=== PATIENT | female | born 1995 | race African-American/Black ===

== ENCOUNTER 2020-11-21 12:19 | Emergency (ER) | payer OTHER, SELFPAY ==
[2020-11-21 12:30] VITALS: BP 149/74; PULSE 92; RESP 20; TEMP 36.9; O2SAT 100
--- NOTE | 2020-11-21 13:07 | ED.GENADULT ---
HPI - General Adult General Chief complaint: Upper Respiratory Infection Stated complaint: Sore Throat, headache, chills, bodyaches, nausea Time Seen by Provider: 11/21/20 13:07 Source: patient and RN notes reviewed Mode of arrival: ambulatory Limitations: no limitations History of Present Illness HPI narrative: 24-year-old -Ind[place] female presents with complaints of sore throat, body aches, intermittent chills, lightheadedness, and headache (not the worst of her life) for the past 2 days. Datyana reports increase sore throat and body aches throughout the night and today. DayQuil and NyQuil with little relief. No high fevers, drooling, neck or throat swelling. Pain is bilateral. Hurts to swallow. Exacerbation factors consist of eating and drinking. Rhinorrhea and nasal congestion. No voice change. Nausea without vomiting and abdominal pain. Tolerating liquids well. Denies dyspnea, difficulty swallowing, jaw pain, dental pain, facial pain, foreign body sensation, and rash. LMP 11/10/2020. Remains active. The patient reports she has not been diagnosed with COVID-19. The patient reports she received the Sarbjit and Sarbjit COVID-19 vaccine. The patient reports she is not waiting for the results of a COVID-19 lab test. The patient reports she does not have weakness, fatigue, or myalgia. The patient reports she does not have a new or worsening cough or shortness of breath. The patient reports she does not have any loss of taste or smell and diarrhea. Denies recent traveling. Denies concerns for COVID-19 or exposures. At this time, the patient is not suspected of having COVID-19. Some parts of this dictation were generated by voice recognition software and may contain typographical and/or grammatical inaccuracies. Related Data Allergies Allergy/AdvReac Type Severity Reaction Status Date / Time No Known Allergies Allergy Verified 02/24/19 18:09 Review of Systems Review of Systems: CONSTITUTIONAL: Denies fever, sweats. Complaints of chills. EYES: Denies visual changes, redness, discharge. ENT: Denies otalgia. Complains of sore throat, congestion, rhinorrhea. CARDIOVASCULAR: Denies chest pain, palpitations, edema. RESPIRATORY: Denies dyspnea, wheezing, cough. GASTROINTESTINAL: Denies abdominal pain, nausea, vomiting, diarrhea. GENITOURINARY: Denies dysuria, hematuria, abnormal discharge. SKIN: Denies rash or itching. MUSCULOSKELETAL: Denies acute back pain, joint pain, or myalgia. NEUROLOGIC: Denies numbness or focal weakness. Complaints of intermittent MILLER and lightheadedness. PSYCHIATRIC: Denies anxiety or depression. All systems reviewed & are unremarkable except as noted in HPI and below. PMFSH Past Medical History Medical History Asthma GERD (gastroesophageal reflux disease) Surgical History Surgical History S/P tonsillectomy and adenoidectomy Family History Family History (Updated 11/21/20 @ 13:21 by THAIS Cooley) Father Asthma Mother Hypertension Social History Social History (Updated 11/21/20 @ 13:21 by THAIS Cooley) Smoking packs per day: 0.5 Smoking cigarettes per day: 10.0 Years smoked: 7 Smoking pack-years: 3.50 Smoking status: Current every day smoker Tobacco type: cigarettes Second hand tobacco smoke exposure: Yes Alcohol intake: current Substance use: current Substance use type: marijuana Living arrangements: with family Occupation/Education: occupation Gender identity (if verbalized by the patient): Female Comments At time of signature, agree with the nurse past medical, surgical, social, and family history. There is relevant patient's history pertinent to the presenting complaint, no relevant family history pertinent to the presenting complaint. Exam Narrative: GENERAL: This is a well-nourished, well-developed patient, in n
[2020-11-21 13:31] VITALS: BP 142/63; PULSE 74
[2020-11-21 13:32] VITALS: BP 139/66; BP 144/63; PULSE 99
== END 2020-11-21 13:33 | disposition home or self-care (01) ==
PROVIDERS: Emergency Provider Nurse Practitioner Family; PCP Nurse Practitioner Family
DX: J02.0 Streptococcal pharyngitis (principal); F17.210 Nicotine dependence, cigarettes, uncomplicated; J45.909 Unspecified asthma, uncomplicated; K21.9 Gastro-esophageal reflux disease without esophagitis
CPT/HCPCS: 87880; 99213; G0463

== ENCOUNTER 2021-04-09 13:48 | Emergency (ER) | payer OTHER, SELFPAY ==
[2021-04-09 14:34] VITALS: BP 136/72; PULSE 84; RESP 16; TEMP 36.9; O2SAT 100
--- NOTE | 2021-04-09 16:11 | ED.URI ---
HPI - URI/Sore Throat General Chief Complaint: Upper Respiratory Infection Stated Complaint: cough aches fever Time Seen by Provider: 04/09/21 16:12 Source: patient, RN notes reviewed and old records reviewed Mode of arrival: ambulatory Limitations: no limitations and clinical condition History of Present Illness HPI Narrative: 25 year old female presents to express care with complaints of cough with body aches, fevers intermittently with some yellow tinged nasal drainage since . Patient reports that she has had COVID vaccination but has not had flu shot this year, does have history of asthma. Patient denies any acute dyspnea but wheezing scattered through out lung cunha. no tachypnea noted with SAO2 100% on room air. Patient reports that she has taken OTC cold medication. MD elicited complaint: fever, cough, rhinorrhea and nasal congestion Pertinent past history: asthma Treatments prior to arrival: cold medicine Related Data Allergies Allergy/AdvReac Type Severity Reaction Status Date / Time No Known Allergies Allergy Verified 04/09/21 15:12 Review of Systems Review of Systems: CONSTITUTIONAL: Intermittent fever,no chills, or sweats. EYES: Denies visual changes, redness, or discharge. ENT: Positive for rhinorrhea, congestion, sore throat, or otalgia. CARDIOVASCULAR: Denies chest pain, palpitations, or edema. RESPIRATORY: Positive cough denies acute dyspnea. GASTROINTESTINAL: Denies abdominal pain, nausea, vomiting, or diarrhea. GENITOURINARY: Denies dysuria or hematuria. SKIN: Denies rash or itching. MUSCULOSKELETAL: Denies back pain, joint pain, or myalgia. NEUROLOGIC: Denies headache, numbness, or weakness. PSYCHIATRIC: Denies anxiety or depression. All systems reviewed & are unremarkable except as noted in HPI and below PMFSH Past Medical History Medical History (Updated 04/10/21 @ 21:46 by Leena Lee NP) Asthma GERD (gastroesophageal reflux disease) Obesity PCOS (polycystic ovarian syndrome) Surgical History Surgical History S/P tonsillectomy and adenoidectomy Family History Family History Father Asthma Mother Hypertension Social History Social History (Updated 04/10/21 @ 21:41 by Leena Lee NP) Smoking packs per day: 0.5 Smoking cigarettes per day: 10.0 Years smoked: 7 Smoking pack-years: 3.50 Smoking status: Former smoker Tobacco type: cigarettes Second hand tobacco smoke exposure: Yes Additional smoking assessment comments: reported quit 03/2018 Alcohol intake: current Substance use: current Substance use type: marijuana Living arrangements: with family Gender identity (if verbalized by the patient): Female Comments At time of signature, agree with nursing past medical, surgical, social and family history. There is no relevant family history pertinent to the presenting complaint Exam Narrative: GENERAL: Well-appearing, well-nourished,obese and in no acute distress. HEAD: Normocephalic, atraumatic. EYES: PERRLA and EOMI. ENT: Nares red with turbinates swollen yellow tinged rhinorrhea no epistaxis. Mucous membranes moist. TM's normal with good light reflex, throat red with no lesions or exudates, tonsils absent NECK: Supple.no lymphadenopathy CHEST: Scattered wheezing inspiratory and expiratory on auscultation. No respiratory distress.No tachypnea SAO2 100% on room air. HEART: Regular rate and rhythm. No murmur heard. Normal peripheral pulses. ABDOMEN: Soft, nontender, nondistended, normal active bowel sounds. EXTREMITIES: Normal range of motion. No edema. SKIN: Warm, dry, no rash. NEURO: No focal deficits. Alert and oriented x3. Course Course Level of Care: Express Care Visit Vital Signs Vital signs: Vital Signs Temperature 36.9 C 04/09/21 14:34 Pulse Rate 84 04/09/21 14:34 Respiratory Rate 16 04/09/21 14:34 Blood Press
== END 2021-04-09 16:47 | disposition home or self-care (01) ==
PROVIDERS: Emergency Provider Registered Nurse; PCP Nurse Practitioner Family
DX: J45.901 Unspecified asthma with (acute) exacerbation (principal); Z20.822 Contact with and (suspected) exposure to COVID-19; J06.9 Acute upper respiratory infection, unspecified; Z87.891 Personal history of nicotine dependence; F12.90 Cannabis use, unspecified, uncomplicated
CPT/HCPCS: 87081; 87147; 87426; 87804; 87880; 99213; C9803; G0463

== ENCOUNTER 2021-07-18 14:57 | Emergency (ER) | payer OTHER, SELFPAY ==
--- NOTE | 2021-07-18 15:01 | ED.URI ---
HPI - URI/Sore Throat General Chief Complaint: Upper Respiratory Infection Stated Complaint: fever congestion cough Time Seen by Provider: 07/18/21 15:01 Source: patient and RN notes reviewed History of Present Illness HPI Narrative: Patient is a 25-year-old female who presents the urgent care with complaints of cough, congestion, body aches, fever. Patient states that she thought her cough that started last was related to her allergies and asthma however symptoms have progressed. Patient has been taking DayQuil, NyQuil, Delsym and Mucinex. Also reports of some mild bilateral ear pain. Patient does have a history of asthma and has been using her inhalers and nebulizers. No other acute complaints. No acute distress noted. Patient aware of the plan of care. Some parts of this dictation were generated by voice recognition software and may contain typographical and/or grammatical inaccuracies. Related Data Allergies Allergy/AdvReac Type Severity Reaction Status Date / Time No Known Allergies Allergy Verified 07/18/21 15:11 Review of Systems Review of Systems: CONSTITUTIONAL: Reports of fever, chills and sweats EYES: Denies visual changes, redness, or discharge. ENT: Reports of congestion, mild sore throat, postnasal drainage and bilateral otalgia CARDIOVASCULAR: Denies chest pain, palpitations, or edema. RESPIRATORY: Reports of cough and intermittent dyspnea with wheezing GASTROINTESTINAL: Denies abdominal pain, nausea, vomiting, or diarrhea. GENITOURINARY: Denies dysuria or hematuria. SKIN: Denies rash or itching. MUSCULOSKELETAL: Denies back pain, joint pain. Reports of body aches NEUROLOGIC: Denies headache, numbness, or weakness. All other systems reviewed are negative, except as documented in HPI. [facility] Past Medical History Medical History (Updated 07/18/21 @ 15:29 by THAIS Guillory) Asthma GERD (gastroesophageal reflux disease) Obesity PCOS (polycystic ovarian syndrome) Surgical History Surgical History S/P tonsillectomy and adenoidectomy Family History Family History Father Asthma Mother Hypertension Social History Social History (Updated 04/10/21 @ 21:41 by Leena Lee NP) Smoking packs per day: 0.5 Smoking cigarettes per day: 10.0 Years smoked: 7 Smoking pack-years: 3.50 Smoking status: Former smoker Tobacco type: cigarettes Second hand tobacco smoke exposure: Yes Additional smoking assessment comments: reported quit 03/2018 Alcohol intake: current Substance use: current Substance use type: marijuana Gender identity (if verbalized by the patient): Female Comments At the time of my signature, I reviewed and agree with the nursing past medical, surgical, social, and family history. There is no relevant family history pertinent to the patient complaint. Exam Narrative: GENERAL: This is a well-nourished, well-developed patient, in no apparent distress. HEAD: normocephalic, atraumatic. EYES: PERRL. Sclera clear/white. Vision is grossly intact. EARS: External ears normal, auditory canals clear and without drainage, TMs normal without perforation. Hearing grossly intact. NOSE: External nose normal with no obvious nasal discharge, nares without redness, yellow rhinorrhea THROAT: Mucous membranes moist, mild erythema noted posterior pharynx with mild bilateral tonsillar edema and moderate postnasal drainage NECK: Neck supple, non-tender without lymphadenopathy CARDIOVASCULAR: Regular rate and rhythm without murmurs, gallops, or rubs. RESPIRATORY: Tight expiratory wheezes throughout SKIN: warm, intact with no suspicious lesions or rash, good texture and turgor. NEURO: awake, alert, and oriented to person, place and time. There were no obvious focal neurologic abnormalities. EXTREMITIES: No clubbing, cyanosis, or edema. Course Course Level of C
[2021-07-18 15:04] VITALS: BP 165/94; PULSE 108; RESP 16; TEMP 36.9; O2SAT 99
== END 2021-07-18 15:33 | disposition home or self-care (01) ==
PROVIDERS: Emergency Provider Nurse Practitioner Family; PCP Nurse Practitioner Family
DX: J45.901 Unspecified asthma with (acute) exacerbation (principal); B34.9 Viral infection, unspecified; Z87.891 Personal history of nicotine dependence; K21.9 Gastro-esophageal reflux disease without esophagitis; E28.2 Polycystic ovarian syndrome; E66.9 Obesity, unspecified; Z68.43 Body mass index [BMI] 50.0-59.9, adult
CPT/HCPCS: 87804; 99213; G0463

== ENCOUNTER 2022-02-26 18:03 | Emergency (ER) | payer OTHER, SELFPAY ==
[2022-02-26 18:14] VITALS: BP 144/53; PULSE 103; RESP 22; TEMP 37.2; O2SAT 99
--- NOTE | 2022-02-26 19:22 | ED.URI ---
HPI - URI/Sore Throat General Chief Complaint: Upper Respiratory Infection Stated Complaint: cough aches chills headache Time Seen by Provider: 02/26/22 19:23 Source: patient and RN notes reviewed Mode of arrival: ambulatory Limitations: no limitations History of Present Illness HPI Narrative: 26-year-old female presents with concern for cough, chills, body aches, sweats, fever that started yesterday. Reports she has been taking 800 mg ibuprofen, Tylenol, cough medicine without relief MD elicited complaint: cough and sore throat Related Data Home Medications Medication Instructions Recorded Confirmed ipratropium 0.5 mg-albuterol 3 mg 3 ml inhalation Q4-6H PRN 02/26/22 02/26/22 (2.5 mg base)/3 mL nebulization Shortness Of Breath Or Wheezing soln Allergies Allergy/AdvReac Type Severity Reaction Status Date / Time No Known Allergies Allergy Verified 02/26/22 19:09 Review of Systems Review of Systems: CONSTITUTIONAL: Reports malaise, chills, sweats, or fever. EYES: Denies visual changes, redness, or discharge. ENT: Reports rhinorrhea, congestion, sinus pain, otalgia and sore throat. CARDIOVASCULAR: Denies chest pain, palpitations, or edema. RESPIRATORY: Reports cough. Denies dyspnea. GASTROINTESTINAL: Denies abdominal pain, diarrhea. Reports nausea, vomiting, SKIN: Denies rash or itching. MUSCULOSKELETAL: Reports myalgia. NEUROLOGIC: Reports headache. All systems reviewed & are unremarkable except as noted in HPI and below PMFSH Past Medical History Medical History (Updated 02/26/22 @ 19:27 by Monica Alegre NP) Asthma GERD (gastroesophageal reflux disease) Obesity PCOS (polycystic ovarian syndrome) Surgical History Surgical History S/P tonsillectomy and adenoidectomy Family History Family History Father Asthma Mother Hypertension Social History Social History (Updated 04/10/21 @ 21:41 by Leena Lee NP) Smoking packs per day: 0.5 Smoking cigarettes per day: 10.0 Years smoked: 7 Smoking pack-years: 3.50 Smoking status: Former smoker Tobacco type: cigarettes Second hand tobacco smoke exposure: Yes Additional smoking assessment comments: reported quit 03/2018 Alcohol intake: current Substance use: current Substance use type: marijuana Gender identity (if verbalized by the patient): Female Comments At time of signature, agree with nursing past medical, surgical, social and family history. There is no relevant family history pertinent to the presenting complaint Exam Narrative: GENERAL: Nontoxic-appearing and in no acute distress. HEAD: Normocephalic EYES: PERRLA, conjunctivae clear ENT: Nares clear, clear discharge. Mucous membranes moist. TM pearly gerardo with dull light reflex bilaterally; no tragal tenderness. Oropharynx not erythematous without lesions. Tonsils not enlarged and without exudate, no drooling, no hoarseness, no trismus, uvula midline. NECK: Supple. No lymphadenopathy CHEST: Clear to auscultation, breath sounds equal. No wheezing, rhonchi, rales, or stridor. No respiratory distress, speaks in full sentences. HEART: Regular rate and rhythm. No murmur heard. SKIN: Warm, dry, no rash. NEURO: Alert and oriented x3. PSYCH: Normal mood and affect Course Course Emergency Course: Patient is aware of diagnosis, understands and agrees to treatment plan. Anticipatory guidance given. Patient agrees to follow-up as directed and is aware of reasons to seek care at the emergency department. Portions of this record may have been created with voice recognition software Level of Care: Express Care Visit Vital Signs Vital signs: Vital Signs Temperature 98.9 F 02/26/22 18:14 Pulse Rate 103 H 02/26/22 18:14 Respiratory Rate 22 H 02/26/22 18:14 Blood Pressure 144/53 H 02/26/22 18:14 Pulse Oximetry 99 02/26/22 18:14 Oxygen Deli
== END 2022-02-26 19:30 | disposition home or self-care (01) ==
PROVIDERS: Emergency Provider Nurse Practitioner; PCP Nurse Practitioner Family
DX: J10.1 Influenza due to other identified influenza virus with other respiratory manifestations (principal); J45.909 Unspecified asthma, uncomplicated; K21.9 Gastro-esophageal reflux disease without esophagitis; E28.2 Polycystic ovarian syndrome; E66.9 Obesity, unspecified; Z68.43 Body mass index [BMI] 50.0-59.9, adult; Z87.891 Personal history of nicotine dependence
CPT/HCPCS: 87804; 99213; G0463

== ENCOUNTER 2024-11-22 14:28 | Emergency (ER) | payer OTHER, SELFPAY ==
--- NOTE | ~2024-11-22 | XR_ITS ---
HISTORY: STUBBING INJURY, DISTAL PHALANX PAIN COMPARISON: None TECHNIQUE: 3 views of the left foot were performed. FINDINGS: Hallux valgus deformity is identified. No acute fracture or dislocation is appreciated. No significant degenerative disease is noted. The base of the fifth metatarsal is intact. Moderate calcaneal spur is noted. No significant soft tissue swelling is present. IMPRESSION: Degenerative disease without acute fracture or dislocation. Reviewed, dictated and finalized at location A.
--- OUTSIDE RECORDS SUMMARY | 2024-11-22 14:30 | XMS_ITS | Clinical Summary ---
Author Organization [facility] Address [address] [place] [address] Phone Care Team Providers Care Bank Clerk Name Role Phone Joshi Tammie BLANCO CNP Primary Care Provider [phone] Girish Calix DPKings Unavailable Unavailable Allergies No known active allergies Medications No known medications Active Problems No known active problems Family History Medical History Relation Name Comments Asthma Father Hypertension Mother Migraines Mother Relation Name Status Comments Father Alive Mother Alive Social History Tobacco Use Types Packs/Day Years Used Date Smoking Tobacco: Every Day Smokeless Tobacco: Never Alcohol Use Standard Drinks/Week Comments Yes 0 (1 standard drink = 0.6 oz pur e alcohol) occasional Comments Unknown Sex and Gender Information Value Date Recorded Sex Assigned at Not on file Legal Sex Female 2:51 AM CERTIFIED ORTHOTIST PRACTICE MANAGER Gender Identity Not on file Sexual Orientation Not on file Last Filed Vital Signs Vital Sign Reading Time Taken Comments Blood Pressure 124/78 01/24/2022 2:41 PM CDT Pulse - - Temperature 36.4 C (97.5 F) 01/24/2022 2:41 PM CDT Respiratory Rate 18 01/24/2022 2:41 PM CDT Oxygen Saturation 99% 01/24/2022 2:41 PM CDT Inhaled Oxygen Concentration - - Weight 152.4 kg (336 lb) 01/24/2022 2:41 PM CDT Height 163.8 cm (5' 4.5) 01/24/2022 2:41 PM CDT Body Mass Index 56.78 01/24/2022 2:41 PM CDT Plan of Treatment Health Maintenance Due Date Last Done Comments Hepatitis C Virus (HCV) Screening 1995 TdaP Immunization 1995 Pneumococcal Immunization Combined (1 of 2 - PCV) 12/06/2014 Pap Smear 12/06/2016 Human Papillomavirus (HPV) Immunization (1 - 3-dose SCDM series) 12/06/2022 SARS-COV-2 Immunization (2 - season) 2023 11/04/2020 Influenza Immunization (#1) 2024 04/28/2019 Respiratory Syncytial Virus (RSV) Immunization (Adult) (1 - 1-dose 75+ series) 12/06/2070 DTaP/Tdap/Td Immunization Discontinued 2000, 06/19/1996, 04/21/1996, Additional history exists Hepatitis B Immunization Completed 023, 09/03/1996, 04/21/1996, Additional history exists Meningococcal Immunization (ACWY) Aged Out No longer eligible based on patient's age to complete this topic Rotavirus Immunization Aged Out No lo nger eligible based on patient's age to complete this topic Goals Goal Patient Goal Type Associated Problems Recent Progress Patient-Stated? Author process difficulties Behavioral Health On track(2023 3:22 PM CERTIFIED ORTHOTIST PRACTICE MANAGER) Yes Janay Wise, COMMUNITY ENGAGEMENT COORDINATOR Note: will gain insight regarding impact of trauma and gain relief from traumatic stress. Goal Reviewed with: patient today Expect treatment to take about 6 months of individual and, possible, group therapy. Readiness to change: Ready to change Department associated with goal: [facility] Steps to achieve goal: will share personal trauma story in counseling/psychotherapy sessions. will learn/identify how trauma has impacted personal life, physical health and behavioral health. will identify and practice, at least two, skills/activities/routines, to gain relief from the impact of trauma. Insurance MEDICAID [place] Care Teams Bank Clerk Relationship Specialty Start Date End Date Joshi, FRANCIS Cho, DAGMAR [address] [place] [id number] PCP - General Family Medicine 12/13/21 Girish Calix DPM Podiatry 01/24/22
--- OUTSIDE RECORDS SUMMARY | 2024-11-22 14:30 | XMS_ITS | Encounter Summary ---
Author Organization [facility] Address [address] [place] [address] Phone Care Team Providers Care System Consultant Name Role Phone JoshiMananTammiegregory BLANCO CNP Primary Care Provider [phone] Girish Calix DPM Unavailable Unavailable Encounter Details Date Type Department Care Team (Late st Contact Info) Description 06/06/2023 Behavioral Health Patient Survey [facility] [address] [place] [address] Janay Wise LCSW [address] [place] [address] Social History Tobacco Use Types Packs/Day Years Used Date Smoking Tobacco: Every Day Smokeless Tobacco: Never Alcohol Use Standard Drinks/Week Comments Yes 0 (1 standard drink = 0.6 oz pur e alcohol) occasional Comments Unknown Sex and Gender Information Value Date Recorded Sex Assigned at Not on file Legal Sex Female 2:51 AM VISION CARE ASSOCIATE Gender Identity Not on file Sexual Orientation Not on file documented as of this encounter Plan of Treatment Not on file documented as of this encounter Goals Goal Patient Goal Type Associated Problems Recent Progress Patient-Stated? Author process difficulties Behavioral Health On track(2023 3:22 PM VISION CARE ASSOCIATE) Yes Janay Wise LCSW Note: will gain insight regarding impact of trauma and gain relief from traumatic stress. Goal Reviewed with: patient today Expect treatment to take about 6 months of individual and, possible, group therapy. Readiness to change: Ready to change Department associated with goal: [facility] Steps to achieve goal: will share personal trauma story in counseling/psychotherapy sessions. will learn/identify how trauma has impacted personal life, physical health and behavioral health. will identify and practice, at least two, skills/activities/routines, to gain relief from the impact of trauma. documented as of this encounter Visit Diagnoses Not on filedocumented in this encounter Care Teams System Consultant Relationship Specialty Start Date End Date Tammie Joshi APRN, LOG CHECK SCALER [address] [place] [address] PCP - General Family Medicine 12/13/21 Girish Calix DPM Podiatry 01/24/22 documented as of this encounter
--- OUTSIDE RECORDS SUMMARY | 2024-11-22 14:30 | XMS_ITS | Encounter Summary ---
Author Organization [facility] Address [address] [place] [address] Phone Care Team Providers Care Evaluation Engineer Name Role Phone JoshiMananTammiegregory BLANCO CNP Primary Care Provider [phone] Girish Calix DPM Unavailable Unavailable Encounter Details Date Type Department Care Team (Late st Contact Info) Description 05/06/2023 Behavioral Health Patient Survey [facility] [address] [place] [address] Janay Wise LCSW [address] [place] [address] Social History Tobacco Use Types Packs/Day Years Used Date Smoking Tobacco: Every Day Smokeless Tobacco: Never Alcohol Use Standard Drinks/Week Comments Yes 0 (1 standard drink = 0.6 oz pur e alcohol) occasional Comments Unknown Sex and Gender Information Value Date Recorded Sex Assigned at Not on file Legal Sex Female 2:51 AM ASTRONOMY PROFESSOR Gender Identity Not on file Sexual Orientation Not on file documented as of this encounter Plan of Treatment Not on file documented as of this encounter Goals Goal Patient Goal Type Associated Problems Recent Progress Patient-Stated? Author process difficulties Behavioral Health On track(2023 3:22 PM ASTRONOMY PROFESSOR) Yes Janay Wise LCSW Note: will gain insight regarding impact of trauma and gain relief from traumatic stress. Goal Reviewed with: patient today Expect treatment to take about 6 months of individual and, possible, group therapy. Readiness to change: Ready to change Department associated with goal: [facility] Steps to achieve goal: will share personal trauma story in counseling/psychotherapy sessions. will learn/identify how trauma has impacted personal life, physical health and behavioral health. will identify and practice, at least two, skills/activities/routines, to gain relief from the impact of trauma. documented as of this encounter Visit Diagnoses Not on filedocumented in this encounter Care Teams Evaluation Engineer Relationship Specialty Start Date End Date Tammie Joshi APRN, AIRCRAFT LANDING GEAR INSPECTOR [address] [place] [address] PCP - General Family Medicine 12/13/21 Girish Calix DPM Podiatry 01/24/22 documented as of this encounter
--- OUTSIDE RECORDS SUMMARY | 2024-11-22 14:30 | XMS_ITS | Clinical Summary ---
Author Organization [facility] Address [address] [place] [address] Care Team Providers Care Automatic Glove Turner And Former Name Role Phone Tammie Joshi NP Primary Care Provider Allergies Active Allergy Reactions Criticality Noted Date Comments Peanut Hives Medium 05/14/2023 Pollens Extract Rhinitis Low 08/02/2023 Medications albuterol HFA (PROVENTIL HFA,VENTOLIN HFA,PROAIR HFA) 90 mcg/actuation inhaler INHALE 2 PUFFS BY MOUTH FOUR TIMES DAILY NEEDED FOR SHORTNESS OF BREATH OR WHEEZING 2 Active cetirizine (ZyrTEC) 10 mg tablet Take 1 tablet (10 mg total) by mouth daily 2 Active fluticasone propionate (FLONASE) 50 mcg/actuation nasal spray 3 Active docusate sodium (COLACE) 100 mg capsuleIndicati ons:constipatio n Take 1 capsule (100 mg total) by mouth 2 (two) times a day for 14 days 28 capsule 4 Active famotidine (PEPCID) 20 mg tablet Take 1 tablet (20 mg total) by mouth 2 (two) times a day 60 tablet 11 4 Active Lactated Ringer's (LR) bolusIndication s:Dehydration Infuse 2,000 mL IV once for 1 dose -Over 2 hours 2000 mL 5 11/11/19 25 Active Problems Problem Noted Date Diagnosed Date Dehydration 12/04/2023 S/P gastric sleeve procedure 11/07/2023 Morbid obesity due to excess calories 11/06/2023 Hypersomnolence 08/05/2023 Heartburn 07/18/2023 AMARI (obstructive sleep apnea) 06/05/2023 Asthma 05/22/2023 Morbid obesity 04/09/2023 Assessment & Plan (11/19/2023 10:59 AM CDT): At 4 weeks the patient can go back to activities unrestricted. Okay to submerge incisions. The patient was asking about riding a bike which she was fine to start doing. Continue to attend the monthly support group meetings. We will see her back in 4 weeks. Assessment & Plan (04/09/2023 8:55 AM DATA PROCESSING MECHANIC): Given their past success the patient would be a good candidate for weight loss surgery. We have gone over options such as the bypass and sleeve gastrectomy. We have also discussed risks and benefits such as blood clots, staple line leak as well as new or worsening reflux symptoms. They are in understanding. During this time will have them seen by the dietitian and psych. As we get closer to the time of surgery we will set him up for an EGD to look for hiatal hernia, H pylori or other gastric pathology. We will see them back in 4 weeks. They are in understanding of the plan. We have gone over small frequent meals shooting for a goal calorie intake of around 1600 spread throughout 4-5 meals. We have discussed not eating late at night. We have discussed cardiovascular exercise. Greater than 15 minutes was spent in counseling the patient on diet and exercise with regards to her morbid obesity. Closed nondisplaced fracture of distal phalanx of left thumb 04/13/2022 Other sprain of right middle finger, initial enc ounter 04/13/2022 Fall, accidental, initial encounter 04/13/2022 Abrasion of skin of left thumb 04/13/2022 Abdominal pain 05/04/2013 Resolved Problems Problem Noted Date Diagnosed Date Resolved Date Sebaceous cyst 04/04/2022 05/08/2022 Overview (04/04/2022): Added automatically from request for surgery [id number] Encounters Date Type Department Care Team Description 11/13/2024 1:30 PM CDT Infusion [facility] [address] [place] [address] Pari Peres, LARS Dehydration (Primary Dx) 11/11/2024 Telephone [facility] [address] [place] [address] William Beck MD 11/10/2024 Telephone [facility] [address] [place] [address] Monica Bower RN 11/10/2024 Orders Only [facility] [address] [place] [address] William Beck MD Dehydration (Primary Dx) 11/09/2024 Orders Only [facility] [address] [place] [address] [address] [place] [address] Wendy Pimentel RN from Last 3 Months Surgical History Surgery Date Site/Laterality Comments TONSILLECTOMY CYST REMOVAL 04/19/2022 N/A sebacous cyst on back SLEEVE GASTROPLASTY 11/06/2023 Medical History Medical History Date Comments Asthma Motion sickness GERD (gastroesophageal reflu x disease) AMARI (obstructive sleep apnea) 06/05/2023 monserrat crystal had a sleep study done that day that did not show sleep apnea Family History Medical History Relation Name Comments Hypertension Mother Family history of hypertension - (Added by TW Conv) Relation Name Status Comments Brother 1 Alive Brother 2 Alive Father Alive Mother Alive Sister 1 Alive Sister 2 Alive Sister 3 Alive Sister 4 Alive Sister 5 Alive Sister 6 Alive Social History Tobacco Use Types Packs/Day Years Used Date Smoking Tobacco: Former Cigarettes Passive Smoke Exposure: Current Smokeless Tobacco: Never Tobacco Cessation:Counseling Given: Not Answered Alcohol Use Standard Drinks/Week Comments Yes 0 (1 standard drink = 0.6 oz pur e alcohol) social AUDIT-C Answer Date Recorded Q1: How often do you have a drink containing alc ohol? Never 12/17/2023 Average Number of Drinks Not on file 024 Frequency of Binge Drinking Not on file 12/07 Personal Safety Answer Date Recorded Have you ever been in or are you currently in a harmful physical or emotional relationship or is someone making you feel afraid or unsafe? Denies 11/06/2023 Comments No Sex and Gender Information Value Date Recorded Sex Assigned at Not on file Legal Sex Female 10:43 AM DATA PROCESSING MECHANIC Gender Identity Not on file Sexual Orientation Partner is transexual 024 10:27 AM CDT Sexual Orientation Bisexual 07/18/2023 10 :27 AM CDT Obstetrics History Para Term AB IAB SAB Ectopic Multiple Livin g Live Births 1 1 1 1 1 Date Outcome GA Total Labor Labor/2nd/3rd Weight Sex Type Anes PTL Allyson A1 A5 Name Clin Term Vag-S pont Living Last Filed Vital Signs Vital Sign Reading Time Taken Comments Blood Pressure 111/65 11/13/2024 1:32 PM CDT Pulse 68 11/13/2024 1:32 PM CDT Temperature 36.3 C (97.3 F) 11/13/2024 1:32 PM CDT Respiratory Rate 16 11/13/2024 1:32 PM CDT Oxygen Saturation 100% 11/13/2024 1:32 PM CDT Inhaled Oxygen Concentration - - Weight 104.7 kg (230 lb 12.8 oz) 07/16/2024 9:22 AM CDT Height 165.1 cm (5' 5) 07/16/2024 9:22 AM CDT Body Mass Index 38.41 07/16/2024 9:22 AM CDT Plan of Treatment Health Maintenance Due Date Last Done Comments Cervical Cancer Screening 1995 Depression Screening 1995 Hepatitis C Screening 1995 Varicella Vaccines (2 of 2 - 2-dose childhood series) 1999 11/15/1998 DTaP/Tdap/Td Vaccine (5 - Tdap) 12/06/2006 08/12/2000, 06/19/1996, 04/21/1996, Additional history exists Regular Well Visit/Exam 18-64 12/06/2013 Pneumococcal vaccine <65 (1 of 2 - PCV) 12/06/2014 HPV Vaccines (1 - 3-dose SCD M series) 12/06/2022 Covid-19 Vaccine (2 - 2023-2 5 season) 2023 11/04/2020 Influenza Vaccine (#1) 2024 04/28/2019 Hepatitis B Screening Completed 09/03/1996 , 04/21/1996, 1995 Insurance [facility] Advance Directives For more information, please contact: [phone] * Full Code (Latest Code Status on File) Date Activated Date Inactivated Comments 11/06/2023 3:37 PM 11/07/2023 7:14 PM * Full Code Date Activated Date Inactivated Comments 08/05/2023 11:40 AM 08/05/2023 7:09 PM * Full Code Date Activated Date Inactivated Comments 08/05/2023 11:40 AM 08/05/2023 11:40 AM Care Teams Automatic Glove Turner And Former Relationship Specialty Start Date End Date Joshi, Tammie Burch NP [address] [place] [address] PCP - General Nurse Practitioner 03/11/20
--- OUTSIDE RECORDS SUMMARY | 2024-11-22 14:30 | XMS_ITS | Continuity of Care Document ---
Author Organization [facility] Address [address] [place] [address] [address] [facility] [address] [place] [address] Phone Care Team Providers Care Student Services Counselor Name Role Phone Mariah Smith Unavailable Unavailable Advance Directives Directive Yes / No Effective Date File Name No Information Encounters Encounter Description Practice Location Reason(s) For Visit Diagnoses Date Provider Providers Copied on Encounter [facility], [address] [place] [address] [address], [place], [place], [id number], [place] tel:[phone] [facility] No Information 0-[address]. [address] , [address], [place], [address], [place]. tel:[phone] Family History Family Member Type Diagnosis Age At Onset No Information Payers Payer name Insurance type Covered republican ID Authoriza tion(s) [facility] [id number] Social History Type Description Quantity Date Captured [...]
--- OUTSIDE RECORDS SUMMARY | 2024-11-22 14:30 | XMS_ITS | Encounter Summary ---
Author Organization [facility] Address [address] [place] [address] Phone Care Team Providers Care Form Setter Helper Name Role Phone JoshiMananTammiegregory BLANCO CNP Primary Care Provider [phone] Girish Calix DPM Unavailable Unavailable Encounter Details Date Type Department Care Team (Late st Contact Info) Description 04/04/2023 Behavioral Health Patient Survey [facility] [address] [place] [address] Janay Wise LCSW [address] [place] [address] Social History Tobacco Use Types Packs/Day Years Used Date Smoking Tobacco: Every Day Smokeless Tobacco: Never Alcohol Use Standard Drinks/Week Comments Yes 0 (1 standard drink = 0.6 oz pur e alcohol) occasional Comments Unknown Sex and Gender Information Value Date Recorded Sex Assigned at Not on file Legal Sex Female 2:51 AM 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 Author process difficulties Behavioral Health On track(2023 3:22 PM RAW SHELLFISH PREPARER) Yes Janay Wise LCSW Note: will gain insight regarding impact of trauma and gain relief from traumatic stress. Goal Reviewed with: patient today Expect treatment to take about 6 months of individual and, possible, group therapy. Readiness to change: Ready to change Department associated with goal: [facility] Steps to achieve goal: will share personal trauma story in counseling/psychotherapy sessions. will learn/identify how trauma has impacted personal life, physical health and behavioral health. will identify and practice, at least two, skills/activities/routines, to gain relief from the impact of trauma. documented as of this encounter Visit Diagnoses Not on filedocumented in this encounter Care Teams Form Setter Helper Relationship Specialty Start Date End Date Tammie Joshi APRN, PLANT PROTECTION GUARD [address] [place] [address] PCP - General Family Medicine 12/13/21 Girish Calix DPM Podiatry 01/24/22 documented as of this encounter
[2024-11-22 14:31] VITALS: BP 128/52; PULSE 81; RESP 18; TEMP 36.7; O2SAT 100
--- OUTSIDE RECORDS SUMMARY | 2024-11-22 14:35 | XMS_ITS | Continuity of Care Document ---
Author Organization [facility] Address [address] [place] [address] [address] [facility] [address] [place] [address] Phone Care Team Providers Care Curriculum And Assessment Director Name Role Phone Mariah Smith Unavailable Unavailable Advance Directives Directive Yes / No Effective Date File Name No Information Encounters Encounter Description Practice Location Reason(s) For Visit Diagnoses Date Provider Providers Copied on Encounter [facility], [address] [place] [address] [address], [place], [place], [id number], [place] tel:[phone] [facility] No Information 0-[address]us. [address] , [address], [place], [address], [place]. tel:[phone] Family History Family Member Type Diagnosis Age At Onset No Information Payers Payer name Insurance type Covered libertarian ID Authoriza tion(s) Medicaid [facility] [id number] Social History Type Description Quantity Date Captured [...]
--- NOTE | 2024-11-22 15:30 | ED_ITS ---
HPI - General Adult General Chief complaint: Extremity Injury, Lower Stated complaint: Toe Injury Source: patient Mode of arrival: ambulatory Limitations: no limitations History of Present Illness HPI narrative: Patient presents for evaluation of pain in the 5th digit of her left foot. Symptom onset today. She was running away from of the on her porch and stubbed her fifth digit of the left foot in the process. She now rates her pain as 4/10 in severity, without descriptive quality. She has not taken any medication to assist with her symptoms. Related Data Home Medications ?Medication ?Instructions ?Recorded ?Confirmed ?Last Taken ?Type calcium 11/22/24 Unknown History cetirizine 10 mg tablet mg 11/22/24 Unknown History famotidine 20 mg tablet mg 11/22/24 Unknown History multivitamin 11/22/24 Unknown History Allergies Allergy/AdvReac Type Severity Reaction Status Date / Time No Known Allergies Allergy Verified 11/22/24 14:42 Review of Systems Review of Systems: CONSTITUTIONAL: Denies fever, chills, or sweats. EYES: Denies visual changes, redness, or discharge. ENT: Denies rhinorrhea, congestion, sore throat, or otalgia. CARDIOVASCULAR: Denies chest pain, palpitations, or edema. RESPIRATORY: Denies cough or dyspnea. GASTROINTESTINAL: Denies abdominal pain, nausea, vomiting, or diarrhea. GENITOURINARY: Denies dysuria or hematuria. SKIN: Denies rash or itching. MUSCULOSKELETAL: Reports pain in the 5th digit left foot NEUROLOGIC: Denies headache, numbness, dizziness, or weakness. PSYCHIATRIC: Denies anxiety or depression. [facility] Past Medical History Medical History Obesity PCOS (polycystic ovarian syndrome) GERD (gastroesophageal reflux disease) Asthma Surgical History Surgical History S/P tonsillectomy and adenoidectomy Family History Family History Father Asthma Mother Hypertension Social History Social History Smoking packs per day: 0.5 Smoking cigarettes per day: 10.0 Years smoked: 7 Smoking pack-years: 3.50 Smoking status: Former smoker Tobacco type: cigarettes Second hand tobacco smoke exposure: Yes Additional smoking assessment comments: reported quit 03/2018 Alcohol intake: current Substance use: current Substance use type: marijuana Living arrangements: with family Occupation/Education: occupation Gender identity (if verbalized by the patient): Female Exam Narrative: GENERAL: Well-appearing, well-nourished, and in no acute distress. HEAD: Normocephalic, atraumatic. EYES: PERRLA and EOMI. ENT: Nares clear, no rhinorrhea or epistaxis. Mucous membranes moist. Oropharynx without tonsillar hypertrophy exudate or other lesions. Bilateral TMs pearly gerardo nonbulging NECK: Supple. No adenopathy or masses. No carotid bruits or JVD CHEST: Clear to auscultation. No respiratory distress. No wheezes rales or rhonchi HEART: Regular rate and rhythm. No murmur heard. Normal peripheral pulses. ABDOMEN: Soft, nontender, nondistended, normal active bowel sounds. EXTREMITIES: Normal range of motion. No edema. There is tenderness in the distal phalanx of the 5th digit left foot SKIN: Warm, dry, no rash. NEURO: No focal deficits. Alert and oriented x3. PSYCH: Normal mood and affect. Course Course Emergency Course: This is a 28 year old female here today for evaluation of pain in the fifth digit of the left foot. X ray negative for fracture. Exam consistent with contusion. Increase water intake. OTC agents for symptom management. Follow up with primary care provider. Go to the ER for worsening symptoms. Patient in agreement with plan of care Level of Care: Express Care Visit Vital Signs Vital signs: Vital Signs Temperature 36.7 C 11/22/24 14:31 Pulse Rate 81 11/22/24 14:31 Respiratory Rate 18 11/22/24 14:31 Blood Pressure 128/52 L 11/22/24 14:31 Pulse Oximetry 100 11/22/24 14:31 Oxygen Delivery Room Air 11/22/24 14:31 Temperature 36.7 C 11/22/24 14:31 Pulse Rate 81 11/22/24 14:31 Respiratory Rate 18 11/22/24 14:31 Blood Pressure 128/52 L 11/22/24 14:31 Pulse Oximetry 100 11/22/24 14:31 Oxygen Delivery Room Air 11/22/24 14:31 Medical Decision Making Vital Signs Vital Signs: Vital Signs Temperature 36.7 C 11/22/24 14:31 Pulse Rate 81 11/22/24 14:31 Respiratory Rate 18 11/22/24 14:31 Blood Pressure 128/52 L 11/22/24 14:31 Pulse Oximetry 100 11/22/24 14:31 Oxygen Delivery Room Air 11/22/24 14:31 Temperature 36.7 C 11/22/24 14:31 Pulse Rate 81 11/22/24 14:31 Respiratory Rate 18 11/22/24 14:31 Blood Pressure 128/52 L 11/22/24 14:31 Pulse Oximetry 100 11/22/24 14:31 Oxygen Delivery Room Air 11/22/24 14:31 Imaging Data Radiologist's impression: Ordering Physician: William Flores APRN Date of Service: 11/22/24 Procedure(s): XR foot LT min 3V Accession Number(s): [id number] cc: William Flores APRN; JING,TAMMIE CAT~ HISTORY: STUBBING INJURY, DISTAL PHALANX PAIN COMPARISON: None TECHNIQUE: 3 views of the left foot were performed. FINDINGS: Hallux valgus deformity is identified. No acute fracture or dislocation is appreciated. No significant degenerative disease is noted. The base of the fifth metatarsal is intact. Moderate calcaneal spur is noted. No significant soft tissue swelling is present. IMPRESSION: Degenerative disease without acute fracture or dislocation. Discharge Plan Discharge Clinical Impression: Contusion of toe Patient Disposition: Home Condition: Stable Instructions: Antibiotic Form, Contusion in Adults (ED) Patient Language: Upper Sorbian Prescriptions: No Action cetirizine 10 mg tablet famotidine 20 mg tablet calcium multivitamin albuterol sulfate 90 mcg/actuation HFA aerosol inhaler 2 puff INHALATION QID PRN (Reason: shortness of breath or wheezing) Qty: 8 0RF Follow-up/Referrals: Jing,Tammie Beltran APN [Primary Care Provider] - Time of Disposition: 15:34
== END 2024-11-22 15:44 | disposition home or self-care (01) ==
PROVIDERS: Emergency Provider Nurse Practitioner; PCP Nurse Practitioner Family
DX: S90.122A Contusion of left lesser toe(s) without damage to nail, initial encounter (principal); X58.XXXA Exposure to other specified factors, initial encounter; E28.2 Polycystic ovarian syndrome; K21.9 Gastro-esophageal reflux disease without esophagitis; J45.909 Unspecified asthma, uncomplicated; E66.9 Obesity, unspecified; Z68.37 Body mass index [BMI] 37.0-37.9, adult; Z87.891 Personal history of nicotine dependence
CPT/HCPCS: 73630; 99213; G0463

== ENCOUNTER 2025-01-10 12:55 | Emergency (ER) | payer OTHER, SELFPAY ==
--- OUTSIDE RECORDS SUMMARY | 2003-11-16 10:15 | XMS_ITS | Continuity of Care Document ---
Author Organization [facility] Address [address] [place] [address] Exec utive [facility] [address] [place] [address] Phone Care Team Providers Care Psychiatric Specialist Name Role Phone Mariah Smith Unavailable Unavailable Advance Directives Directive Yes / No Effective Date File Name No Information Encounters Encounter Description Practice Location Reason(s) For Visit Diagnoses Date Provider Providers Copied on Encounter [facility], [address] [place] [address] [address], [place], [place], [id number], [place] tel:[phone] [facility] No Information 0-200 4 Sarah Lemus. [address] , [address], [place], [address], [place]. tel:[phone] Family History Family Member Type Diagnosis Age At Onset No Information Payers Payer name Insurance type Covered green party ID Authoriza tion(s) Medicaid COUNT INCLUDES THE [facility] [id number] Social History Type Description Quantity Date Captured Comments Sex Female Smoking Status No Information Chief Complaint And Reason For Visit No Information Reason For Referral Reason For Referral No Information History Of Present Illness Encounter Date Complaint History Of Prese nt Illness No Information Functional Status Date Functional Assessmen t No Information Instructions Date Instruction Additional Infor mation No Information Assessments Type Assessment Date No Information Patient Care Teams Name Effective Dates (start - stop) Status Members No Information
--- OUTSIDE RECORDS SUMMARY | 2003-11-16 10:15 | XMS_ITS | Continuity of Care Document ---
Author Organization [facility] Address [address] [place] [address] Exec utive [facility] [address] [place] [address] Phone Care Team Providers Care Pt Skilled Name Role Phone Mariah Smith Unavailable Unavailable Advance Directives Directive Yes / No Effective Date File Name No Information Encounters Encounter Description Practice Location Reason(s) For Visit Diagnoses Date Provider Providers Copied on Encounter [facility], [address] [place] [address] [address], [place], [place], [id number], [place] tel:[phone] [facility] No Information 0-200 [address] Sarah Lemus. [address] , [address], [place], [address], [place]. tel:[phone] Family History Family Member Type Diagnosis Age At Onset No Information Payers Payer name Insurance type Covered green party ID Authoriza tion(s) Medicaid [facility] [id number] Social History Type Description Quantity Date Captured [...]
--- NOTE | ~2025-01-10 | XR_ITS ---
Examination: XR toe 5th LT min 2V Clinical History: injury today. LT 5th toe. Comparison: None Technique: 3 views left fifth toe Findings/impression: 1. Tiny fracture fifth toe, middle phalanx, proximal base, dorsal surface. Reviewed, dictated and finalized at location R.
--- OUTSIDE RECORDS SUMMARY | 2025-01-10 12:58 | XMS_ITS | Encounter Summary ---
Author Organization [facility] Address [address] [place] [address] Phone Care Team Providers Care Physician Name Role Phone JoshiMananTammiegregory BLANCO CNP Primary Care Provider [phone] Girish Calix DPM Unavailable Unavailable Encounter Details Date Type Department Care Team (Late st Contact Info) Description 05/06/2023 Behavioral Health Patient Survey [facility] [address] [place] [address] Janay Wise LCSW [address] [place] [address] Social History Tobacco Use Types Packs/Day Years Used Date Smoking Tobacco: Every Day Smokeless Tobacco: Never Alcohol Use Standard Drinks/Week Comments Yes 0 (1 standard drink = 0.6 oz pur e alcohol) occasional Comments Unknown Sex and Gender Information Value Date Recorded Sex Assigned at Not on file Legal Sex Female 2:51 AM SYSTEMS APPLICATIONS PROGRAMMING LEAD Gender Identity Not on file Sexual Orientation Not on file documented as of this encounter Plan of Treatment Not on file documented as of this encounter Goals Goal Patient Goal Type Associated Problems Recent Progress Patient-Stated? Author process difficulties Behavioral Health On track(2023 3:22 PM SYSTEMS APPLICATIONS PROGRAMMING LEAD) Yes Janay Wise LCSW Note: will gain insight regarding impact of trauma and gain relief from traumatic stress. Goal Reviewed with: patient today Expect treatment to take about 6 months of individual and, possible, group therapy. Readiness to change: Ready to change Department associated with goal: [facility] Steps to achieve goal: will share personal trauma story in counseling/psychotherapy sessions. will learn/identify how trauma has impacted personal life, physical health and behavioral health. will identify and practice, at least two, skills/activities/routines, to gain relief from the impact of trauma. documented as of this encounter Visit Diagnoses Not on filedocumented in this encounter Care Teams Physician Relationship Specialty Start Date End Date Tammie Joshi APRN, FELLING MACHINE OPERATOR PCP - General Family Medicine 12/13/21 Girish Calix DPM Podiatry 01/24/22 documented as of this encounter
--- OUTSIDE RECORDS SUMMARY | 2025-01-10 12:58 | XMS_ITS | Encounter Summary ---
Author Organization [facility] Address [address] [place] [address] Phone Care Team Providers Care Rn Disease Management Name Role Phone JoshiMananTammiegregory BLANCO CNP Primary Care Provider [phone] Girish Calix DPM Unavailable Unavailable Encounter Details Date Type Department Care Team (Late st Contact Info) Description 06/06/2023 Behavioral Health Patient Survey [facility] [address] [place] [address] Janay Wise LCSW [address] [place] [address] Social History Tobacco Use Types Packs/Day Years Used Date Smoking Tobacco: Every Day Smokeless Tobacco: Never Alcohol Use Standard Drinks/Week Comments Yes 0 (1 standard drink = 0.6 oz pur e alcohol) occasional Comments Unknown Sex and Gender Information Value Date Recorded Sex Assigned at Not on file Legal Sex Female 2:51 AM GLOBAL SUPPLY CHAIN DIRECTOR Gender Identity Not on file Sexual Orientation Not on file documented as of this encounter Plan of Treatment Not on file documented as of this encounter Goals Goal Patient Goal Type Associated Problems Recent Progress Patient-Stated? Author process difficulties Behavioral Health On track(2023 3:22 PM GLOBAL SUPPLY CHAIN DIRECTOR) Yes Janay Wise LCSW Note: will gain insight regarding impact of trauma and gain relief from traumatic stress. Goal Reviewed with: patient today Expect treatment to take about 6 months of individual and, possible, group therapy. Readiness to change: Ready to change Department associated with goal: [facility] Steps to achieve goal: will share personal trauma story in counseling/psychotherapy sessions. will learn/identify how trauma has impacted personal life, physical health and behavioral health. will identify and practice, at least two, skills/activities/routines, to gain relief from the impact of trauma. documented as of this encounter Visit Diagnoses Not on filedocumented in this encounter Care Teams Rn Disease Management Relationship Specialty Start Date End Date Tammie Joshi APRN, BUMP GRADER OPERATOR PCP - General Family Medicine 12/13/21 Girish Calix DPM Podiatry 01/24/22 documented as of this encounter
--- OUTSIDE RECORDS SUMMARY | 2025-01-10 12:58 | XMS_ITS | Encounter Summary ---
Author Organization [facility] Address [address] [place] [address] Phone Care Team Providers Care Rangelands Conservation Laborer Name Role Phone JoshiMananTammiegregory BLANCO CNP Primary Care Provider [phone] Girish Calix DPM Unavailable Unavailable Encounter Details Date Type Department Care Team (Late st Contact Info) Description 04/04/2023 Behavioral Health Patient Survey [facility] [address] [place] [address] Janay Wise LCSW [address] [place] [address] Social History Tobacco Use Types Packs/Day Years Used Date Smoking Tobacco: Every Day Smokeless Tobacco: Never Alcohol Use Standard Drinks/Week Comments Yes 0 (1 standard drink = 0.6 oz pur e alcohol) occasional Comments Unknown Sex and Gender Information Value Date Recorded Sex Assigned at Not on file Legal Sex Female 2:51 AM SLIDE ATTENDANT Gender Identity Not on file Sexual Orientation Not on file documented as of this encounter Plan of Treatment Not on file documented as of this encounter Goals Goal Patient Goal Type Associated Problems Recent Progress Patient-Stated? Author process difficulties Behavioral Health On track(2023 3:22 PM SLIDE ATTENDANT) Yes Janay Wise LCSW Note: will gain insight regarding impact of trauma and gain relief from traumatic stress. Goal Reviewed with: patient today Expect treatment to take about 6 months of individual and, possible, group therapy. Readiness to change: Ready to change Department associated with goal: [facility] Steps to achieve goal: will share personal trauma story in counseling/psychotherapy sessions. will learn/identify how trauma has impacted personal life, physical health and behavioral health. will identify and practice, at least two, skills/activities/routines, to gain relief from the impact of trauma. documented as of this encounter Visit Diagnoses Not on filedocumented in this encounter Care Teams Rangelands Conservation Laborer Relationship Specialty Start Date End Date Tammie Joshi APRN, PHARMACY DIRECTOR PCP - General Family Medicine 12/13/21 Girish Calix DPM Podiatry 01/24/22 documented as of this encounter
--- OUTSIDE RECORDS SUMMARY | 2025-01-10 12:58 | XMS_ITS | Clinical Summary ---
Author Organization [facility] Address [address] [place] [address] Care Team Providers Care Diet Supervisor Name Role Phone Tammie Joshi NP Primary [...] a day 60 tablet 11 4 Active Active Problems Problem Noted Date Diagnosed Date Abdominal pannus 11/24/2024 Excessive and redundant skin and subcutaneous ti ssue 11/24/2024 Dehydration 12/04/2023 S/P gastric sleeve procedure 11/07/2023 [...] weeks. Assessment & Plan (04/09/2023 8:55 AM PATTERNMAKER HELPER): Given their past success the patient would [...] (04/04/2022): Added automatically from request for surgery [id number] Encounters Date Type Department Care Team Description 11/24/2024 11:00 AM CDT [address] S/P gastric sleeve procedure 11/24/2024 9:30 AM CDT - 11/24/2024 11:59 PM CDT Hospital Encounter [facility] Nutrition and Diabetic Education 1 [facility] Jovanny Wing [address] [place] [address] Ricky, Anne Garcia RD Discharge Disposition: Discharge to home or self care 11/24/2024 9:00 AM CDT Office Visit [address] [place] [address] Gaby Martinez, MARCO A S/P gastric sleeve procedure (Primary Dx); Excessive and redundant skin and subcutaneous tissue; Abdominal pannus 11/13/2024 1:30 PM CDT Infusion [address] [place] [address] Pari Peres, LARS Dehydration (Primary Dx) 11/11/[address] [place] [address] William Beck MD 11/10/[address] [place] [address] Monica Bower RN 11/10/2024 Orders Only [address] [place] [address] William Beck MD Dehydration (Primary Dx) 11/09/2024 Orders Only [address] [place] [address] Wendy Pimentel, LARS from Last 3 Months Surgical History Surgery Date Site/Laterality Comments TONSILLECTOMY CYST REMOVAL 04/19/2022 N/A sebacous cyst on back SLEEVE GASTROPLASTY 11/06/2023 BARIATRIC SURGERY 11/06/2023 Medical History Medical History Date Comments Asthma Motion sickness GERD (gastroesophageal reflux disease) AMARI (obstructive sleep apnea) 06/05/2023 monserrat rojas had a sleep study done that day that did not show sleep apnea Depression Family History Medical History Relation Name Comments Alcohol abuse Father Clarke Asthma Father Clarke Heart disease Maternal Grandfather Mango Stroke Maternal Grandfather Mango Arthritis Maternal Grandmother Angi Hearing loss Maternal Grandmother Angi Hypertension Maternal Grandmother Angi Depression Mother Anne Hypertension Mother Anne Family history of hypertension - (Added by TW Conv) Asthma Paternal Grandmother Aya COPD Paternal Grandmother Aya Asthma Sister 7 Qwagalyn Asthma Sister 8 Ukari Asthma Sister 9 Pearl Depression Sister 10 Zaida Asthma Son [place] Relation Name Status Comments Brother 1 Alive Brother 2 Alive Father Clarke Alive Maternal Grandfather Mango Alive Maternal Grandmother Angi Alive Mother Anne Alive Paternal Grandmother Aya Alive Sister 1 Alive Sister 2 Alive Sister 3 Alive Sister 4 Alive Sister 5 Alive Sister 6 Alive Sister 7 Qwagalyn Alive Sister 8 Ukari Alive Sister 9 Pearl Alive Sister 10 Zaida Alive Son Coral Alive Social History Tobacco Use Types Packs/Day [...] on file Legal Sex Female 10:43 AM PATTERNMAKER HELPER Gender Identity Not on file Sexual Orientation Partner is transexual 024 10:27 AM CDT Sexual Orientation Bisexual 07/18/2023 10 :27 AM CDT Obstetrics History Para Term AB IAB SAB Ectopic Multiple Livin g Live Births 1 1 Date Outcome GA Total Labor Labor/2nd/3rd Weight Sex Type Anes PTL Allyson A1 A5 Name Clin Term Vag-S pont Living Last Filed Vital Signs Vital Sign Reading Time Taken Comments Blood Pressure 106/72 11/24/2024 9:10 AM CDT Pulse 84 11/24/2024 9:10 AM CDT Temperature 36.2 C (97.1 F) 11/24/2024 9:10 AM CDT Respiratory Rate 16 11/13/2024 1:32 PM CDT Oxygen Saturation 99% 11/24/2024 9:10 AM CDT Inhaled Oxygen Concentration - - Weight 98.9 kg (218 lb) 11/24/2024 9:10 AM CDT Height 165.1 cm (5' 5) 11/24/2024 10:44 AM CDT Body Mass Index 36.28 11/24/2024 9:10 AM CDT Plan of Treatment Health Maintenance [...] M series) 12/06/2022 Covid-19 Vaccine (2 - 2024-2 6 season) 2024 11/04/2020 Influenza Vaccine (#1) 2024 04/28/2019 Hepatitis B Screening Completed 09/03/1996 , 04/21/1996, 1995 Procedures Procedure Name Priority Date/Time Associated Diagnosis Comments EGFR Routine 11/24/2024 10:48 AM CDT S/P gastric sleeve procedure CBC WITHOUT DIFFERENTIAL Routine 11/24/2024 10:48 AM CDT S/P gastric sleeve procedure BASIC METABOLIC PANEL Routine 11/24/2024 10:48 AM CDT S/P gastric sleeve procedure VITAMIN D 25 HYDROXY Routine 11/24/2024 10:48 AM CDT S/P gastric sleeve procedure THYROID FUNCTION CASCADE Routine 11/24/2024 10:48 AM CDT S/P gastric sleeve procedure VITAMIN B12 Routine 11/24/2024 10:48 AM CDT S/P gastric sleeve procedure VITAMIN B1 Routine 11/24/2024 10:48 AM CDT S/P gastric sleeve procedure IRON PROFILE W/ IBC Routine 11/24/2024 1 0:48 AM CDT S/P gastric sleeve procedure HEMOGLOBIN A1C Routine 11/24/2024 10:48 AM CDT S/P gastric sleeve procedure from Last 3 Months Results * eGFR (11/24/2024 10:48 AM CDT) eGFR >90 >=60 mL/min/1. 73 m2 Comment: Interpretive Data Reference Interval Normal >/= 90 mL/min/1.73m2 Mildly decreased* 60 - 89 mL/min/1.73m2 Mildly to moderately decreased 45 - 59 mL/min/1.73m2 Moderately to severely decreased 30 - 44 mL/min/1.73m2 Severely decreased 15 - 29 mL/min/1.73m2 Kidney Failure < 15 mL/min/1.73m2 *Relative to young adult level Estimated glomerular filtration rate is determined by the 2020 CKD-EPI equation recommended by the National Kidney Foundation (A Unifying Approach to GFR Estimation: Recommendations of the NKF-ASK Task Force on Reassessing the Inclusion of Race in Diagnosing Kidney Disease, JASN 2020). The CKD-EPI equation should not be used for patients with unstable renal function and has not been validated in children and those over 70. Current interpretive data was last reviewed 2021. Blood 11/24/2024 10:4 8 AM CDT 11/24/2024 1:33 PM CDT us Gaby Martinez SMOOTH STUCCO RESURFACER LAB BLOOD ORDERABLES Final Re sult [facility] [place]) 1 [facility] [address] [place] [address] * Thyroid Function [place] (11/24/2024 10:48 AM CDT) TSH 1.27 0.30 - 4.20 mcIUnit/mL [facility] ([place]) Blood 11/24/2024 10:4 8 AM CDT 11/24/2024 1:33 PM CDT us Gaby Martinez SMOOTH STUCCO RESURFACER LAB BLOOD ORDERABLES Final Re sult [facility] ([place]) 1 [facility] [place] [address] * (ABNORMAL) Iron profile w/ IBC (11/24/2024 10:48 AM CDT) Iron 41 35 - 145 mcg/dL [facility] ([place]) TIBC 350 250 - 400 mcg/dL [facility] ([place]) Transferrin saturation 12(L) 20 - 50 % [facility] ([place]) Blood 11/24/2024 10:4 8 AM CDT 11/24/2024 1:33 PM CDT us Gaby Martinez SMOOTH STUCCO RESURFACER LAB BLOOD ORDERABLES Final Re sult [facility] ([place]) 1 [facility] [place] [address] * (ABNORMAL) Vitamin D 25 hydroxy (11/24/2024 10:48 AM CDT) Vitamin D 25-OH 28(L) 30 - 80 ng/mL [facility] ([place]) Blood 11/24/2024 10:4 8 AM CDT 11/24/2024 1:33 PM CDT us Gaby Martinez SMOOTH STUCCO RESURFACER LAB BLOOD ORDERABLES Final Re sult [facility] ([place]) 1 [facility] [place] [address] * CBC without differential (11/24/2024 10:48 AM CDT) Pathologist [facility] WBC 6.00 3.80 - 9.90 K/cumm Hgb 12.0 11.9 - 15.5 g/dL [facility] ([place]) Hct 35.9 35.6 - 45.5 % [facility] ([place]) Plt 220 150 - 400 K/cumm [facility] ([place]) MPV 11.2 9.1 - 12.3 fL [facility] ([place]) RBC 3.99 3.90 - 5.20 M/cumm [facility] ([place]) MCV 90.0 81.3 - 96.4 fL [facility] ([place]) MCH 30.1 27.1 - 33.3 pg [facility] ([place]) MCHC 33.4 32.3 - 35.7 g/dL [facility] ([place]) RDW CV 12.4 11.1 - 14.9 % [facility] ([place]) RDW SD 41.0 35.7 - 48.1 fL [facility] ([place]) NRBC abs 0.00 0.00 - 0.01 K/cumm [facility] ([place]) Blood 11/24/2024 10:4 8 AM CDT 11/24/2024 1:33 PM CDT us Gaby Martinez SMOOTH STUCCO RESURFACER LAB BLOOD ORDERABLES Final Re sult [facility] ([place]) 1 [facility] Department [place] [address] * Vitamin B1 (11/24/2024 10:48 AM CDT) Pathologist [facility] Thiamine (Vit B1) 109 70 - 180 nmol/L [facility] ref Lab Comment: ADDITIONAL INFORMATION This test was developed and its performance characteristics determined by [facility] in a manner consistent with CLIA requirements. This test has not been cleared or approved by the U.S. Food and Drug Administration. Test Performed by: [facility] [address] [place] [address] Pulverizer Feeder: Geno Jacobs Ph.D.; CLIA# [id number] Blood 11/24/2024 10:4 8 AM CDT 11/24/2024 1:27 PM CDT Gaby Martinez SMOOTH STUCCO RESURFACER LAB BLOOD ORDERABLES Final Re sult Performing Organization Address [facility] Co de Phone Number [facility] 1 [facility] [place] [address] [facility] ref Lab * Hemoglobin A1c (11/24/2024 10:48 AM CDT) [facility] Hgb A1C 4.9 4.0 - 5.6 % [facility] Estimated Average Glucose 94 mg/dL [facility] ([place]) Comment: The ADA recommends reporting an estimated Average Glucose (eAG) with all Hemoglobin A1c results using the equation derived from a study of 507 normal and diabetic adults. Minority populations were underrepresented and children were not included. (Diabetes Care 31:4508-6613, 2008). The eAG is not equivalent to a fasting glucose. Testing performed by: [facility], [address] [facility], [place], [address] Blood 11/24/2024 10:4 8 AM CDT 11/24/2024 1:33 PM CDT Gaby Martinez SMOOTH STUCCO RESURFACER LAB BLOOD ORDERABLES Final Re sult Performing Organization Address [facility] Co de Phone Number [facility] 1 [facility] [place] [address] * Vitamin B12 (11/24/2024 10:48 AM CDT) [facility] Vitamin B12 399 230 - 1,250 pg/mL [facility] ([place]) Blood 11/24/2024 10:4 8 AM CDT 11/24/2024 1:33 PM CDT us Gaby Martinez SMOOTH STUCCO RESURFACER LAB BLOOD ORDERABLES Final Re sult [facility] ([place]) 1 [facility] [address] [place] [address] * Basic metabolic panel (11/24/2024 10:48 AM CDT) Sodium 139 135 - 145 mmol/L [facility] ([place]) Potassium, pl 3.9 3.3 - 4.9 mmol/L [facility] ([place]) Chloride 106 97 - 110 mmol/L [facility] ([place]) CO2 22 22 - 32 mmol/L [facility] ([place]) Anion gap 11 2 - 15 mmol/L [facility] ([place]) BUN 16 6 - 25 mg/dL [facility] ([place]) Creatinine 0.73 0.60 - 1.10 mg/dL [facility] ([place]) Glucose 74 70 - 199 mg/dL [facility] ([place]) Comment: Interpretive Data Fasting glucose >/= 126 mg/dl is diagnostic for diabetes. Fasting is defined as no caloric intake for at least 8 hours. Fasting glucose between 100 mg/dl to 125 mg/dl is diagnostic of prediabetes. In a patient with classic symptoms of hyperglycemia or hyperglycemic crisis, a random glucose >/= 200 mg/dl is diagnostic for diabetes. In the absence of unequivocal hyperglycemia, results should be confirmed by repeat testing. The classification and Diagnosis of Diabetes Diabetes Care 2021; 46: S19-S40. Current interpretive data was last revised 2022. Calcium 8.9 8.5 - 10.3 mg/dL [facility] ([place]) Blood 11/24/2024 10:4 8 AM CDT 11/24/2024 1:33 PM CDT us Gaby Martinez SMOOTH STUCCO RESURFACER LAB BLOOD ORDERABLES Final Re sult [facility] ([place]) 1 [facility] [address] [place] [address] from Last 3 Months Insurance [employer] [place] [employer] [place] [facility] [place] Advance Directives For more information, please contact: [phone] * Full Code (Latest Code Status on File) Date Activated Date Inactivated Comments 11/06/2023 3:37 PM 11/07/2023 7:14 PM * Full Code Date Activated Date Inactivated Comments 08/05/2023 11:40 AM 08/05/2023 7:09 PM * Full Code Date Activated Date Inactivated Comments 08/05/2023 11:40 AM 08/05/2023 11:40 AM Care Teams Diet Supervisor Relationship Specialty Start Date End Date Joshi, Tammie Burch NP [address] [place] [address] PCP - General Nurse Practitioner 03/11/20
--- OUTSIDE RECORDS SUMMARY | 2025-01-10 12:58 | XMS_ITS | Clinical Summary ---
Author Organization [facility] Address [address] [place] [address] Phone Care Team Providers Care Wireless Manager Name Role Phone Joshi Tammie BLANCO CNP Primary Care Provider [phone] Girish Calix DPKings Unavailable Unavailable Allergies No [...] on file Legal Sex Female 2:51 AM PHYSICIAN GENERAL INTERNAL MEDICINE Gender Identity Not on file Sexual Orientation [...] Immunization (1 - 3-dose SCDM series) 12/06/2022 Influenza Immunization (#1) 2024 04/28/2019 SARS-COV-2 Immunization (2 - season) 2024 11/04/2020 Respiratory Syncytial Virus (RSV) Immunization (Adult) (1 [...] difficulties Behavioral Health On track(2023 3:22 PM PHYSICIAN GENERAL INTERNAL MEDICINE) Yes Janay Wise, DIE FITTER Note: will gain insight regarding impact of trauma and gain relief from traumatic stress. Goal Reviewed with: patient today Expect treatment to take about 6 months of individual and, possible, group therapy. Readiness to change: Ready to change Department associated with goal: [facility] Steps to achieve goal: will share personal trauma story in counseling/psychotherapy sessions. will learn/identify how trauma has impacted personal life, physical health and behavioral health. will identify and practice, at least two, skills/activities/routines, to gain relief from the impact of trauma. Insurance [place] [place] Care Teams Wireless Manager Relationship Specialty Start Date End Date Joshi, FRANCIS Cho CNP PCP - General Family Medicine 12/13/21 Girish Calix DPM Podiatry 01/24/22
[2025-01-10 13:02] VITALS: BP 122/67; PULSE 76; RESP 20; TEMP 36.9; O2SAT 100
--- NOTE | 2025-01-10 13:57 | ED.LOWEXIN ---
HPI - Extremity Injury (Lower) General Chief Complaint: Extremity Injury, Lower Stated Complaint: Toe Injury Time Seen by Provider: 01/10/25 13:40 Source: patient and RN notes reviewed Mode of arrival: ambulatory Limitations: no limitations History of Present Illness HPI Narrative: 29-year-old female Presents Express Care complaining of injury to 5th left toe. Patient reports stubbed on a parking block, was sandals when injury occurred. Patient denies any falls or any other injuries. Injury occurred approximately 45 minutes ago. Patient denies any numbness or tingling, or any other symptoms. Patient denies any significant past medical history. Patient able to bear weight with some discomfort. Related Data Home Medications ?Medication ?Instructions ?Recorded ?Confirmed ?Last Taken ?Type calcium 11/22/24 Unknown History cetirizine 10 mg tablet mg 11/22/24 Unknown History famotidine 20 mg tablet mg 11/22/24 Unknown History multivitamin 11/22/24 Unknown History Allergies Allergy/AdvReac Type Severity Reaction Status Date / Time No Known Allergies Allergy Verified 11/22/24 14:42 Review of Systems Review of Systems: CONSTITUTIONAL: Denies fever, chills, or sweats. EYES: Denies visual changes, redness, or discharge. ENT: Denies rhinorrhea, congestion, sore throat, or otalgia. CARDIOVASCULAR: Denies chest pain, palpitations, or edema. RESPIRATORY: Denies cough or dyspnea. GASTROINTESTINAL: Denies abdominal pain, nausea, vomiting, or diarrhea. GENITOURINARY: Denies dysuria or hematuria. SKIN: Denies rash, wound, or itching. MUSCULOSKELETAL: Denies back pain, joint pain, or myalgia. Positive for 5th toe injury and swelling NEUROLOGIC: Denies headache, numbness, or weakness. PSYCHIATRIC: Denies anxiety or depression. All other systems reviewed are negative, except as documented in HPI. [facility], [facility] Past Medical History Medical History Obesity PCOS (polycystic ovarian syndrome) GERD (gastroesophageal reflux disease) Asthma Surgical History Surgical History S/P tonsillectomy and adenoidectomy Family History Family History Father Asthma Mother Hypertension Social History Social History Smoking packs per day: 0.5 Smoking cigarettes per day: 10.0 Years smoked: 7 Smoking pack-years: 3.50 Smoking status: Former smoker Tobacco type: cigarettes Second hand tobacco smoke exposure: Yes Additional smoking assessment comments: reported quit 03/2018 Alcohol intake: current Substance use: current Substance use type: marijuana Living arrangements: with family Occupation/Education: occupation Gender identity (if verbalized by the patient): Female Comments At the time of my signature, I reviewed and agree with the nursing past medical, surgical, social, and family history. There is no relevant family history pertinent to the patient complaint. Exam Narrative: GENERAL: This is a well-nourished, well-developed adult, in no apparent distress. They are non ill-appearing, nontoxic appearing. HEAD: normocephalic, atraumatic. EYES: Sclera clear/white. Vision is grossly intact. Conjunctiva normal. Extraocular movement intact. EARS: External ears normal Hearing grossly intact. NOSE: External nose normal THROAT: Mucous membranes moist NECK: Neck supple CARDIOVASCULAR: Regular rate and rhythm RESPIRATORY: Respiratory rate normal, respiratory effort nonlabored, no respiratory distress NEURO: awake, alert, and oriented to person, place and time. There were no obvious focal neurologic abnormalities. EXTREMITIES: Left foot: No obvious deformity, injury, , bruising, redness. Mild swelling the 5th digit. Normal range of motion. Fifth digit tender near the MCP joint. Capillary refill less than 3 seconds. Left pedal Pulse 2 +palpable. Normal sensation. Neurovascular status intact distal injury. Patient able to wiggle her toes. BACK: Nontender without deformity. Course Course Emergency Course: Portions of this record may have been created with voice recognition software Level of Care: Express Care Visit Vital Signs Vital signs: Vital Signs Temperature 98.5 F 01/10/25 13:02 Pulse Rate 76 01/10/25 13:02 Respiratory Rate 20 01/10/25 13:02 Blood Pressure 122/67 01/10/25 13:02 Pulse Oximetry 100 01/10/25 13:02 Oxygen Delivery Room Air 01/10/25 13:02 Temperature 98.5 F 01/10/25 13:02 Pulse Rate 76 01/10/25 13:02 Respiratory Rate 20 01/10/25 13:02 Blood Pressure 122/67 01/10/25 13:02 Pulse Oximetry 100 01/10/25 13:02 Oxygen Delivery Room Air 01/10/25 13:02 Reviewed MDM - Extremity Injury (Lower) MDM Narrative Medical decision making narrative: Left 5th toe x-ray shows a avulsion fracture to the middle phalanx of the 5th digit. Patient given postop shoe. Advised patient to follow-up PCP or see orthopedist for further evaluation. Discussed supportive therapy in rice therapy. Discussed physical exam findings. Advised supportive measures and signs/symptoms to go to the ER. Pt is appropriate for outpt treatment and f/u. Differential Diagnosis Differential diagnosis: Likely fracture of toe and other (Foot fracture, foot sprain, toe contusion) Imaging Data Radiologist's impression: Findings/impression: 1. Tiny fracture fifth toe, middle phalanx, proximal base, dorsal surface. Critical Care Time Critical Care Time Critical Care Time: No Discharge Plan Discharge Clinical Impression: Closed fracture of fifth toe of left foot Patient Disposition: Home Condition: Stable Instructions: Antibiotic Form, Toe Fracture (ED) Additional Instructions: The x-ray of your 5th toe shows a fracture. For the postop shoe when your up walking around. Rest and elevate the leg; bear weight as tolerated Apply ice 15-20 minute intervals several times a day You may take ibuprofen 600 mg to 800 mg every 6-8 hours. Do not exceed more than 800 mg of ibuprofen per dose. Do not exceed more than 3200 mg ibuprofen in a day. You may take up to 1000 mg Tylenol every 6-8 hours. Do not exceed 1000 mg per dose, do exceed more than 4000 mg of Tylenol in a day. Follow up with your primary care provider or orthopedist in 3-5 days for re-evaluation. Patient Language: [place] Prescriptions: No Action cetirizine 10 mg tablet famotidine 20 mg tablet calcium multivitamin albuterol sulfate 90 mcg/actuation HFA aerosol inhaler 2 puff INHALATION QID PRN (Reason: shortness of breath or wheezing) Qty: 8 0RF Follow-up/Referrals: Adi,Tammie Beltran APN [Primary Care Provider, Unknown] Osvaldo Bravo MD [Physician, Orthopedics] Time of Disposition: 13:56
== END 2025-01-10 14:03 | disposition home or self-care (01) ==
PROVIDERS: PCP Nurse Practitioner Family
DX: S92.522A Displaced fracture of middle phalanx of left lesser toe(s), initial encounter for closed fracture (principal); W22.09XA Striking against other stationary object, initial encounter; J45.909 Unspecified asthma, uncomplicated; E28.2 Polycystic ovarian syndrome; K21.9 Gastro-esophageal reflux disease without esophagitis; E66.9 Obesity, unspecified; Z87.891 Personal history of nicotine dependence; Z68.36 Body mass index [BMI] 36.0-36.9, adult
CPT/HCPCS: 73660; 99214; G0463